=== PATIENT | female | born 2000 | race Caucasian/White ===

== ENCOUNTER 2022-03-31 22:46 | Emergency (ER) | payer OTHER, SELFPAY ==
[2022-03-31 22:51] VITALS: BP 143/86; PULSE 120; RESP 18; TEMP 36.8; O2SAT 99; BMI 36.1
--- NOTE | 2022-03-31 23:11 | CT_ITS ---
EXAM: CT HEAD WITHOUT INTRAVENOUS CONTRAST CLINICAL INDICATION: seizure TECHNIQUE: Multiple axial images were obtained of the head without intravenous contrast. This CT exam was performed using one or more of the following dose reduction techniques: automated exposure control, adjustment of the mA and/or kV according to patient size, and/or use of iterative reconstruction technique. This report was created using [employer] report generation technology. RADIATION DOSE: CTDIvol = 44.99 mGy, DLP = 796.11 mGy-cm. COMPARISON: None. FINDINGS: BRAIN AND EXTRA-AXIAL SPACES: Unremarkable. No intra- or extra-axial hemorrhage. No evidence of acute infarct. No intracranial mass or mass effect. There is preservation of the ghosh/white matter interface. Posterior fossa structures are unremarkable. Ventricles are appropriate for age. No hydrocephalus. Basal cisterns are patent. BONES/JOINTS: Unremarkable. No discrete lytic or blastic abnormalities. SINUSES: Bilateral maxillary and ethmoid sinus mucosal disease. MASTOID AIR CELLS: Unremarkable. Clear. ORBITS: Visualized globes, extraocular muscles, optic nerves and retrobulbar fat appear unremarkable. CT/Brain/Head without Contrast IMPRESSION: 1. No acute intracranial abnormality. 2. Bilateral maxillary and ethmoid sinus mucosal disease. Electronically Signed: Oscar Sparrow MD at 0:00 EDT ,
[2022-03-31 23:44] LABS: Mucous, Urine 0 SEEN /hpf (<or=2+); Red Blood Cells-Urine 0 SEEN /hpf (0-5); Squamous Epithelial Cells - UA 0 SEEN /hpf (5-10); White Blood Cells 0 SEEN /hpf (0-5)
[2022-03-31 23:45] LABS: Color, Urine Yellow (Yellow); Glucose, Dipstick Normal (Normal); Ketone-Dipstick Negative (Negative); Leukocyte Esterase-Dipstick Negative /ul (Negative); Nitrite-Dipstick Negative (Negative); Occult Blood-Urine 25 /ul (Negative); Protein-Dipstick Negative (Negative); Urine Bilirubin Dipstick Negative (Negative); Urine Clarity Clear (Clear); Urine Urobilinogen Normal (Normal)
[2022-03-31 23:47] LABS: Absolute Lymphocyte Count 7.63 X10^3/uL (0.83-4.51); Absolute Neutrophil Count 1.4 X10^3/uL (2.0-7.7); Anion Gap 9 (5-15); BUN 12 mg/dL (7-18); BUN/Creat Ratio 15.8 RATIO (10-20); Basophil# 0.12 X10^3/uL; Basophil% 1.2 % (0-1); Calcium,Total 8.9 mg/dL (8.5-10.1); Chloride 104 mmol/L (98-107); Creatinine, Serum 0.76 mg/dL (0.55-1.02); EST Glomerular Filtration Rate 102 mL/min (>60); Eosinophil# 0.11 X10^3/uL; Eosinophils% 1.1 % (0-5); Est Glom Filt Rate - Afr Amer 123 mL/min (>60); Estimated Creatinine Clearance 118.12 ml/min; Glucose 91 mg/dL (74-106); Hemoglobin 14.7 g/dL (12.0-15.0); Lymphocyte # 7.63 X10^3/ul (0.83-4.51); Lymphocyte % 77.9 % (19-41); Mean Corp Hgb Conc 34.2 g/dL (32-36); Mean Corpuscular Volume 90.7 fL (81-99); Mean Platelet Vol. 9.7 fl (6.2-12.0); Monocyte# 0.49 X10^3/uL; NRBC Flagged by Analyzer 0 % (0-5); Neutrophil % 14.4 % (47-70); POSITIVE DIFFERENTIAL YES; POSITIVE MORPHOLOGY YES; Platelet Count 251 K/mm3 (150-450); RBC Distribution Width CV 11.9 % (11.6-14.6); RBC Distribution Width SD 40.4 fl (35.1-43.9); Red Blood Count 4.74 M/mm3 (4.2-5.4); Sodium Level 138 mmol/L (136-145); White Blood Count 9.8 K/mm3 (4.4-11.0)
[2022-03-31 23:51] LABS: Internal QC Validated? YES +Cl - CLEAR BKGD; Pregnancy, Serum, hCG Quali. NEGATIVE Negative
[2022-03-31 23:54] LABS: Differential Indicated SCAN CRITERIA MET
[2022-04-01 00:05] LABS: Bacteria RARE /hpf (None Seen)
[2022-04-01 00:27] LABS: Lactic Acid 1.1 mmol/L (0.4-1.9)
[2022-04-01 00:30] LABS: Amphetamine Urine VISTA NEGATIVE (<1000 ng/mL); Barbiturate Urine VISTA NEGATIVE (< 200 ng/mL); Benzodiazepine Urine VISTA NEGATIVE (< 200 ng/mL); Cocaine Urine VISTA NEGATIVE (< 300 ng/mL); Ecstacy Urine VISTA NEGATIVE (< 500 ng/mL); Methadone Urine VISTA NEGATIVE (< 300 ng/mL); PCP Urine VISTA NEGATIVE (< 25 ng/mL); THC Urine VISTA NEGATIVE (< 50 ng/mL); Vista UDS pH Range 6
[2022-04-01 00:32] LABS: Differential Comment SCANNED; Reactive Lymphocyte 1+
--- NOTE | 2022-04-01 00:51 | EDS_ITS ---
HPI History of Present Illness Chief Complaint: Seizure Narrative Narrative: Patient is a 22-year-old female with past medical history of anxiety. She states that she recently moved in with her boyfriend. She reports that this evening she remembers that they were having sexual intercourse and then she was is awaking in the ambulance. Boyfriend states that he noticed that she began to stare off. And then started to foam at the mouth and then she had contractures and twitching like activity. He states this lasted for about 2 to 3-minute and then resolved but following this she appeared awake but would not respond. Secondary to this EMS was contacted. Patient states she is been taking her medication as directed she denies any new medication or illicit drug use. She denies any recent head trauma or previous history of seizure activity. PFSH PFSH Allergy/AdvReac Type Severity Reaction Status Date / Time No Known Allergies Allergy Verified 03/31/22 22:49 Social History Smoking Status: Never smoker ROS ROS ED Constitutional Constitutional ED: Denies chills or fever(s) Eyes Eyes: Denies change in vision ENT ENT ED: Denies sore throat Cardiovascular Cardiovascular: Denies chest pain Respiratory/Chest Respiratory/Chest: Denies cough or dyspnea Gastrointestinal Gastrointestinal: Denies abdominal pain, diarrhea, nausea or vomiting Genitourinary Genitourinary ED: Denies dysuria Musculoskeletal Musculoskeletal: Denies myalgias Integumentary Denies rash Neurologic Neurologic: Denies headache(s) Psychiatric Psychiatric: Reports anxiety Hematologic/Lymphatic Hematologic/Lymphatic: Denies easy bleeding or easy bruising EXAM Physical Exam Const Vital Signs: 03/31/22 22:51 04/01/22 00:55 Temperature 98.2 F Temperature Source Temporal Pulse Rate 120 H 76 Respiratory Rate 18 17 Blood Pressure 143/86 H 132/74 H Blood Pressure Mean 105 93 Pulse Ox 99 99 Oxygen Delivery Method Room Air Room Air Positive well nourished and well developed General Appearance ED: well developed HEENT Reports moist mucous membranes HEENT Narrative: There is mild right-sided tongue biting noted consistent with possible seizure Eyes PERRL and EOMs intact bilaterally Neck supple Chest Wall palpation of chest normal Resp normal respiratory effort and clear to auscultation bilaterally Cardio regular rate and regular rhythm GI normal to inspection, nondistended, normoactive bowel sounds, non-tender, non- distended and no masses Auscultation: normoactive bowel sounds Palpation: soft Extremity normal to inspection Neuro oriented x3, CN's II-XII intact bilaterally and no sensory deficits noted Neuro Narrative: Cranial nerves II through XII are grossly intact. No focal neurologic deficit noted. No pronator drift no dysmetria no truncal ataxia. NIH stroke scale score of 0 Sensorium / Orientation: alert Psych Psych Narrative: Patient has a flat affect Skin no rashes or lesions noted MDM MDM MDM Narrative Medical decision making narrative: Patient presented to the ER awake and alert with normal neurologic exam. She had no history of seizure disorder and denied any illicit substances that could have precipitated the seizure activity. Secondary to this I did elect to perform basic laboratory studies as well as head CT. Labs revealed no clinically significant findings and patient is not . Head CT revealed no acute changes either. The patient had no further seizure activity while in the ER and remained at her baseline mental. Therefore this time with a one-time seizure event with return to baseline mental status and no further seizure activity as well as negative work-up she is otherwise safe for discharge and can follow-up on an outpatient basis Lab Data Attestation: I reviewed the patient's lab results. Labs: Laboratory Results - last 24 hr 03/31/22 03/31/22 03/31/22 22:58 22:58 22:58 WBC 9.8 RBC 4.74 Hgb 14.7 Hct 43.0 MCV 90.7 MCH 31.0 MCHC 34.2 RDW Std Deviation 40.4 RDW Coeff of Maddy 11.9 Plt Count 251 MPV 9.7 Immature Gran % (Auto) 0.400 Neut % (Auto) 14.4 L Lymph % (Auto) 77.9 H [place] % (Auto) 5.0 Eos % (Auto) 1.1 Baso % (Auto) 1.2 H Absolute Neuts (auto) 1.4 L Absolute Lymphs (auto) 7.63 H Nucleated RBC % 0 Differential Comment SCANNED Reactive Lymphocytes 1+ Sodium 138 Potassium 4.0 Chloride 104 Carbon Dioxide 25.0 Anion Gap 9 BUN 12 Creatinine 0.76 Estim Creat Clear Calc 118.12 Est GFR (MDRD) Af Amer 123 Est GFR (MDRD) Non-Af 102 BUN/Creatinine Ratio 15.8 Glucose 91 Lactic Acid Calcium 8.9 Magnesium 2.0 Serum , Qual NEGATIVE Urine Color Urine Clarity Urine pH Ur Specific [place] Urine Protein Urine Glucose (UA) Urine Ketones Urine Occult Blood Urine Nitrite Urine Bilirubin Urine Urobilinogen Ur Leukocyte Esterase Urine RBC Urine WBC Ur Squamous Epith Cells Urine Bacteria Urine Mucus Urine Opiates Screen Urine Methadone Screen Ur Barbiturates Screen Ur Phencyclidine Scrn Ur Amphetamines Screen MDMA (Ecstasy) Screen U Benzodiazepines Scrn Urine Cocaine Screen U Cannabinoids Screen Ur Drug Screen Comment 03/31/22 03/31/22 03/31/22 23:35 23:35 23:55 WBC RBC Hgb Hct MCV MCH MCHC RDW Std Deviation RDW Coeff of Maddy Plt Count MPV Immature Gran % (Auto) Neut % (Auto) Lymph % (Auto) [place] % (Auto) Eos % (Auto) Baso % (Auto) Absolute Neuts (auto) Absolute Lymphs (auto) Nucleated RBC % Differential Comment Reactive Lymphocytes Sodium Potassium Chloride Carbon Dioxide Anion Gap BUN Creatinine Estim Creat Clear Calc Est GFR (MDRD) Af Amer Est GFR (MDRD) Non-Af BUN/Creatinine Ratio Glucose Lactic Acid 1.1 Calcium Magnesium Serum , Qual Urine Color Yellow Urine Clarity Clear Urine pH 7.0 Ur Specific [place] 1.010 Urine Protein Negative Urine Glucose (UA) Normal Urine Ketones Negative Urine Occult Blood 25 H Urine Nitrite Negative Urine Bilirubin Negative Urine Urobilinogen Normal Ur Leukocyte Esterase Negative Urine RBC 0 SEEN Urine WBC 0 SEEN Ur Squamous Epith Cells 0 SEEN Urine Bacteria RARE Urine Mucus 0 SEEN Urine Opiates Screen NEGATIVE Urine Methadone Screen NEGATIVE Ur Barbiturates Screen NEGATIVE Ur Phencyclidine Scrn NEGATIVE Ur Amphetamines Screen NEGATIVE MDMA (Ecstasy) Screen NEGATIVE U Benzodiazepines Scrn NEGATIVE Urine Cocaine Screen NEGATIVE U Cannabinoids Screen NEGATIVE Ur Drug Screen Comment Radiography Diagnostic Testing: Clinical Impression(s) from Imaging Studies Brain CT 03/31/22 23:11 IMPRESSION: 1. No acute intracranial abnormality. 2. Bilateral maxillary and ethmoid sinus mucosal disease. Electronically Signed: Oscar Sparrow MD at 0:00 EDT , Discharge Plan Triage Chief Complaint: Seizure ED Provider: Usman Tracey Dx/Rx/DC Orders Clinical Impression: Seizure-like activity, Anxiety Instructions: ED Seizure New Onset Unknown ... Primary Care Provider: Ashok Vee NP Referrals: Joe Nuñez MD [Non-Staff -Ordering Privileges] - Ashok Vee NP, [employer] OPERATOR RECEPTIONIST-C [Primary Care Provider] - Activity Restrictions/Additional Instructions: Please do not drive or operate heavy machinery until you are reevaluated by neurology because of the seizure-like activity that occurred this evening. Please return to the ER should you have any further concerns Disposition Disposition: Home, Self Care Discharge Date/Time: 04/01/22 01:16
[2022-04-01 00:55] VITALS: BP 132/74; PULSE 76; RESP 17; O2SAT 99
== END 2022-04-01 01:16 | disposition home or self-care (01) ==
PROVIDERS: Emergency Provider Emergency Medicine; PCP Nurse Practitioner Family; Visit Provider Emergency Medicine
DX: R56.9 Unspecified convulsions (principal); F41.9 Anxiety disorder, unspecified
CPT/HCPCS: 70450; 80048; 80307; 81001; 83605; 83735; 84703; 85025; 99285; A4216

== ENCOUNTER → 2022-08-21 | Outpatient (CLI) | payer OTHER, SELFPAY ==
--- NOTE | 2022-08-21 10:06 | TELEMED_ITS ---
[facility] has confirmed receipt of a request for visit. This document confirms receipt of the order initiating the consult. To find the results of the consultation, please view the patient's reports for the scanned Tele[facility] Consult.
== END | disposition home or self-care (01) ==
PROVIDERS: PCP Nurse Practitioner Family; Visit Provider Psychiatry & Neurology Neurology
DX: G40.909 Epilepsy, unspecified, not intractable, without status epilepticus (principal); G43.009 Migraine without aura, not intractable, without status migrainosus
CPT/HCPCS: 95819

== ENCOUNTER → 2022-08-27 | Outpatient (CLI) | payer OTHER, SELFPAY ==
--- NOTE | 2022-08-27 17:40 | MRI_ITS ---
EXAM: MR HEAD WITHOUT AND WITH INTRAVENOUS CONTRAST CLINICAL INDICATION: Generalized seizure of focal onset in March 2022, L frontal headaches above and around L eye TECHNIQUE: Multiplanar and multisequence MR images of the brain were obtained without and with intravenous contrast. This report was created using [employer] report [employer] technology. CONTRAST: 20 mL of IV Clariscan. COMPARISON: CT head without contrast 03/31/2022. FINDINGS: BRAIN AND EXTRA-AXIAL SPACES: Following IV contrast administration, there is a small partially included mass in the left porus acusticus. This measures 0.8 x 0.7 cm in the thin coronal sections and is only partially included in the routine postcontrast thick T1 sagittal and thick T1 coronal sections of the brain. I am unable to confirm contrast enhancement. This is partially visualized on the CT head scan as an area of extra-axial bony exostosis or ossified meningioma. No abnormal enhancing lesions intra-axially and extra-axially. There is contrast enhancement of the mucosal thickening in the left maxillary sinus, left ethmoid sinus and left frontal sinus. No intra- or extra-axial hemorrhage. No evidence of acute infarct. There is preservation of the ghosh/white matter interface. Posterior fossa structures are unremarkable. Ventricles are appropriate for age. No hydrocephalus. Basal cisterns are patent. No focal signal abnormalities throughout the brain parenchyma in all pulse sequences. No suspicious abnormality of the limbic lobes. SELLA: Unremarkable. Normal sella turcica, pituitary gland, infundibular stalk, optic chiasm and hypothalamus. AUDITORY SYSTEM: Unremarkable. The internal auditory canals are patent. BONES/JOINTS: Unremarkable. No discrete lytic or blastic abnormalities. SINUSES: Pronounced mucosal thickening in the left maxillary sinus, left ethmoid sinus and left frontal sinus. Mild mucosal thickening with retention cyst and small air-fluid level in the right maxillary sinus. MASTOID AIR CELLS: Unremarkable as visualized. Clear. ORBITS: Unremarkable as visualized. Both globes, extraocular muscles, optic nerves and retrobulbar fat appear unremarkable. VASCULATURE: Unremarkable as visualized. Normal flow voids in the major intracranial circulation. MRI/Brain W/WO Contrast IMPRESSION: 1. 0.8 x 0.7 cm bony mass in the left porus acusticus is uncertain for ossified meningioma or focal bony exostosis. This is partially included and visualized on the CT head scan of 03/31/2022. This is of doubtful clinical significance. If desired, CT cuts of the IACs and temporal bones and dedicated MRI of the IACs with and without contrast will help clarify. 2. Pronounced sinusitis in the left maxillary sinus, left ethmoid sinus and left frontal sinus. 3. No suspicious abnormality of the limbic lobes, neuronal migrational disorders or brain parenchymal abnormality. Seizures remain unexplained. Electronically Signed: Kirk Gomez MD at 10:57 EST ,
== END | disposition home or self-care (01) ==
PROVIDERS: PCP Nurse Practitioner Family; Referring Provider Psychiatry & Neurology Neurology; Visit Provider Psychiatry & Neurology Neurology
DX: G43.009 Migraine without aura, not intractable, without status migrainosus (principal); G40.909 Epilepsy, unspecified, not intractable, without status epilepticus
CPT/HCPCS: 70553; A9575

== ENCOUNTER → 2023-02-20 | Outpatient (CLI) | payer OTHER, SELFPAY ==
--- NOTE | 2023-02-20 08:47 | CT_ITS ---
STUDY: CT BRAIN WITHOUT CONTRAST REASON FOR EXAM: Female, 22 years old. Known meningioma RADIATION DOSAGE (If Supplied By Facility): CTDIvol = ( 44.99 ) mGy, DLP = ( 829.85 ) mGycm TECHNIQUE: Transaxial CT imaging of the brain was performed without administration of intravenous contrast material. Individualized dose optimization techniques were used for this CT. COMPARISON: MR from 08/27/2022, CT from 03/31/2022 FINDINGS: Normal soft tissue structures. Normal calvarium. Again identified is a calcified meningioma in the left porous acousticus. No interval change since previous CT or MRI. Normal size ventricles and extra-axial spaces for the patient''s age. Normal white matter tracts of the cerebral hemispheres. Normal basal ganglia and thalami. Normal brainstem. Normal cerebellum. There is no intracranial hemorrhage. There are no findings of an acute ischemic infarction. The left maxillary sinus is opacified with occlusion of the left ostiomeatal complex and diffuse ethmoid sinusitis also noted. CT/Brain/Head without Contrast IMPRESSION: No acute hemorrhage midline shift or mass effect Opacified left maxillary sinus with occlusion of the left ostiomeatal complex. Diffuse ethmoid sinusitis also noted Stable 8 mm calcification in the left porous acousticus, likely a calcified meningioma Electronically Signed: Laurent Kuo MD at 10:32 EDT ,
== END | disposition home or self-care (01) ==
PROVIDERS: PCP Nurse Practitioner Family; Referring Provider Psychiatry & Neurology Neurology; Visit Provider Psychiatry & Neurology Neurology
DX: M89.9 Disorder of bone, unspecified (principal)
CPT/HCPCS: 70450

== ENCOUNTER 2023-04-19 10:07 | Emergency (ER) | payer OTHER, SELFPAY ==
[2023-04-19 10:08] VITALS: BP 163/94; PULSE 81; RESP 16; TEMP 36.1; O2SAT 100; BMI 37.7
--- NOTE | 2023-04-19 11:28 | CT_ITS ---
EXAM: CT ABDOMEN AND PELVIS WITH INTRAVENOUS CONTRAST CLINICAL INDICATION: abdominal pain TECHNIQUE: Helically acquired images were obtained of the abdomen and pelvis with intravenous contrast. This CT exam was performed using one or more of the following dose reduction techniques: automated exposure control, adjustment of the mA and/or kV according to patient size, and/or use of iterative reconstruction technique. CONTRAST: IV 100mL Isovue-300 COMPARISON: No relevant prior studies available. FINDINGS: LOWER THORAX: Normal. Lung bases are clear. No cardiomegaly. No pericardial effusion. ABDOMEN: LIVER: Normal. Homogeneous. No focal mass. PANCREAS: Normal. No focal cystic or solid mass. SPLEEN: Normal. Normal size without focal cystic or solid mass. ADRENALS: Normal. No nodules. KIDNEYS AND URETERS: Normal. Normal renal size and position. No hydronephrosis. STOMACH AND BOWEL: Normal. No bowel distention. No focal inflammatory change. PELVIS: APPENDIX: Appendix is visualized and normal in appearance. BLADDER: Normal. REPRODUCTIVE: Unremarkable as visualized. No mass. ABDOMEN and PELVIS: INTRAPERITONEAL SPACE: Small amount of free fluid within the pelvis noted which may represent hemoperitoneum. 2.6 cm left ovarian cyst. No free air. BONES/JOINTS: No suspicious lytic or blastic abnormality. SOFT TISSUES: Normal. No discrete abdominal or pelvic wall hernia. VASCULATURE: Normal. Abdominal aorta is non-dilated. LYMPH NODES: Normal. No enlarged lymph nodes. CT/Abdomen/Pelvis W IV Cont ONLY IMPRESSION: Free pelvic fluid which may represent small hemoperitoneum related to ruptured ovarian cyst. Correlate with hCG titer. Electronically Signed: Seamus Hanna MD at 12:36 EDT ,
--- NOTE | 2023-04-19 11:29 | EX.ED.DYSGE1 ---
HPI <JOSELINE Jurado - Last Filed: 04/19/23 12:57> History of Present Illness Chief Complaint: Abd Pain Narrative Narrative: Patient is a 23-year-old female with history of anxiety, 1 episode seizure who presents to the emergency department for 4 days of lower abdominal pain. Patient states the pain is now more localized on her right lower quadrant, and also has pain to the right upper quadrant. She denies any significant nausea or vomiting. She denies any history of , denies any history of abdominal surgeries. She is here with her mother. Patient denies any sick contacts. PFSH <JOSELINE Jurado - Last Filed: 04/19/23 12:57> [facility] Medical History (Updated 04/19/23 @ 12:56 by JOSELINE Jurado) Single epileptic seizure UTI (urinary tract infection) Home Medications citalopram 10 mg tablet 10 mg PO DAILY 08/11/22 [History Last Taken Unknown] ibuprofen 600 mg tablet 600 mg PO Q6H PRN PRN pain #20 TABLETS 04/19/23 [Rx Last Taken Unknown] Allergy/AdvReac Type Severity Reaction Status Date / Time latex AdvReac Mild Other Verified 04/19/23 10:08 Family History Grandmother Breast cancer Lung cancer Heart disease Hypertension High cholesterol CVA (cerebral vascular accident) Sister Depression Grandfather Heart disease Hypertension High cholesterol CVA (cerebral vascular accident) Other Cancer Diabetes Mental disorder Seizures Surgical History History of tonsillectomy Social History Smoking Status: Never smoker second hand exposure: No alcohol intake: never substance use type: does not use what type of physical activity do you participate in: none seatbelt use: always ROS <JOSELINE Jurado - Last Filed: 04/19/23 12:57> ROS ED ROS Narrative Constitutional: Negative for fever, chills, weight loss, weakness Eyes: Negative for vision loss, vision change, double vision ENT: Negative for any sore throat, ear pain, congestion Cardiovascular: Negative for any chest pain, tightness, palpitations Respiratory: Negative for any cough, sputum production, hemoptysis, dyspnea, dyspnea on exertion, orthopnea Gastrointestinal: Negative for any nausea, vomiting, diarrhea, constipation, blood in stool, blood in vomit. Positive for abdominal pain : Negative for any urinary frequency, dysuria, retention, blood in urine Muscle skeletal: Negative for any muscle joint pain, stiffness, myalgias, arthralgias, neck pain, back pain Neurological: Negative for any headache, syncope, numbness or tingling, dizziness Skin: Negative for any rashes, lumps, itching, abrasions, lacerations Psychiatric: Negative for any depression, anxiety, stress, suicidal ideation, homicidal ideation Hematologic: Negative for any easy bruising, excessive bruising, easy bleeding Allergies: Negative for any eczema, hives, rash EXAM <JOSELINE Jurado - Last Filed: 04/19/23 12:57> Physical Exam Narrative Exam Narrative: Vital signs reviewed. HEET: Head normocephalic atraumatic, TMs clear bilaterally. Posterior pharynx is clear, moist mucous membranes. Nares clear bilaterally. Neck: Supple with no lymphadenopathy or tenderness. No signs of meningismus, negative jolt sign. Cardiac: Regular rate and rhythm no murmurs gallops or rubs, equal peripheral pulses bilaterally. Respiratory: Lungs clear to auscultation bilaterally. No chest tenderness. Abdomen: Soft, nondistended. No abdominal bruit or pulsatile masses. No hepatosplenomegaly. Patient did have some pain to the upper abdominal area, negative Mukherjee sign. Patient did have pain in McBurney's point to the right lower quadrant. Extremities: No peripheral edema, no signs of gross trauma or deformity. Active full range of motion of all extremities. Neuro: Cranial nerves II through XII intact, no focal neurological deficits. Skin: Clean dry and intact with no rash, purpura, petechiae, vesicles or pustules. Backs/flank: No CVA tenderness, no midline spinal tenderness, no deformity. Psych: Normal mood and affect. No SI, HI or acute psychosis. Const Vital Signs: 04/19/23 10:08 04/19/23 13:12 Temperature 96.9 F L Temperature Source Temporal Pulse Rate 81 62 Respiratory Rate 16 15 Blood Pressure 163/94 H 129/74 H Blood Pressure Mean 117 92 Pulse Ox 100 98 Oxygen Delivery Method Room Air Positive well nourished and well developed General Appearance ED: well developed <Dr. Wilson Thomas MD - Last Filed: 04/19/23 13:40> Physical Exam Const Vital Signs: 04/19/23 10:08 04/19/23 13:12 Temperature 96.9 F L Temperature Source Temporal Pulse Rate 81 62 Respiratory Rate 16 15 Blood Pressure 163/94 H 129/74 H Blood Pressure Mean 117 92 Pulse Ox 100 98 Oxygen Delivery Method Room Air MDM <JOSELINE Jurado - Last Filed: 04/19/23 12:57> MDM Lab Data Labs: Laboratory Results - last 24 hr 04/19/23 11:20 WBC 8.4 RBC 4.56 Hgb 13.8 Hct 41.7 MCV 91.4 MCH 30.3 MCHC 33.1 RDW Std Deviation 41.7 RDW Coeff of Maddy 12.5 Plt Count 359 MPV 9.4 Immature Gran % (Auto) 0.200 Neut % (Auto) 55.5 Lymph % (Auto) 33.9 [place] % (Auto) 6.1 Eos % (Auto) 3.7 Baso % (Auto) 0.6 Absolute Neuts (auto) 4.6 Absolute Lymphs (auto) 2.83 Nucleated RBC % 0 Sodium 138 Potassium 3.5 Chloride 107 Carbon Dioxide 27.0 Anion Gap 4 L BUN 10 Creatinine 0.60 Estim Creat Clear Calc 148.36 Est GFR (MDRD) Af Amer 162 Est GFR (MDRD) Non-Af 134 BUN/Creatinine Ratio 16.8 Glucose 90 Calcium 8.6 Total Bilirubin 0.40 AST 11 L ALT 23 Alkaline Phosphatase 104 Total Protein 7.7 Albumin 3.6 Globulin 4.1 Albumin/Globulin Ratio 0.9 Lipase 22 Urine Color Straw Urine Clarity Clear Urine pH 7.0 Ur Specific [place] 1.010 Urine Protein Negative Urine Glucose (UA) Normal Urine Ketones Negative Urine Occult Blood 10 H Urine Nitrite Negative Urine Bilirubin Negative Urine Urobilinogen Normal Ur Leukocyte Esterase Negative Urine RBC 0 SEEN Urine WBC 0 SEEN Ur Squamous Epith Cells 0-5 SEEN Urine Bacteria 0 SEEN Urine Mucus 0 SEEN Urine Test Negative Radiography Diagnostic Testing: Clinical Impression(s) from Imaging Studies Abdomen/Pelvis CT 04/19/23 11:28 IMPRESSION: Free pelvic fluid which may represent small hemoperitoneum related to ruptured ovarian cyst. Correlate with hCG titer. Electronically Signed: Seamus Hanna MD at 12:36 EDT , Treatment and Re-Evaluation :: Patient appears generally well, patient appears nontoxic, vital signs are stable. Patient presents to the emergency department with lower abdominal pain. Secondary the patient's pain to the lower abdomen, patient will receive a CT scan of the abdomen pelvis. Differential diagnosis includes ovarian cyst, acute appendicitis, gastroenteritis, muscle skeletal pain. Patient was using basic laboratory values looking for any electrolyte abnormality, lipase, all radiologic examinations were read, reviewed by the emergency department attending. From these reads, a plan of care will be put in place. Patient's lab values showed normal CBC, patient's chemistries were unremarkable, lipase was negative. Urinalysis was negative for any infection, patient's urine hCG was negative. Patient was given IV Toradol here for pain. CT scan of the abdomen pelvis showed free pelvic fluid which may represent small hemoperitoneum related to a ruptured ovarian cyst. Patient does have a 2.3 cm ovarian cyst on the left ovary. This does correlate with the patient's symptoms. Patient does look nontoxic. Patient be treated with anti-inflammatories, she will also follow-up with her PATIENT SAFETY TECH. She was given strict return precaution. All questions were answered, patient stable for discharge <Dr. Wilson Thomas MD - Last Filed: 04/19/23 13:40> [facility] Narrative Medical decision making narrative: I have personally performed a face to face assessment of the patient and have reviewed the TRISTAN Note. I performed a substantive portion of the visit including all aspects of the following. My son findings include: History: Patient's been having mostly right-sided pain mostly lower. Last menstrual cycle was Wednesday. No fever. Mild nausea no vomiting. Exam: Mild tenderness along the right side. More right lower than right upper though. No rebound or guarding. Medical Decision Making: Blood work is done. We did do CT scan with the tenderness. Patient CBC he is overall well. Patient's elect lites well. Patient's urine is overall normal. Patient's lipase is normal. Patient's urine is negative. I had been interpretation the patient's CT of the abdomen shows little fluid down the pelvis no other acute process. Final reading: IMPRESSION: Free pelvic fluid which may represent small hemoperitoneum related to ruptured ovarian cyst. Correlate with hCG titer. Lab Data Attestation: I reviewed the patient's lab results. Labs: Laboratory Results - last 24 hr 04/19/23 11:20 WBC 8.4 RBC 4.56 Hgb 13.8 Hct 41.7 MCV 91.4 MCH 30.3 MCHC 33.1 RDW Std Deviation 41.7 RDW Coeff of Maddy 12.5 Plt Count 359 MPV 9.4 Immature Gran % (Auto) 0.200 Neut % (Auto) 55.5 Lymph % (Auto) 33.9 [place] % (Auto) 6.1 Eos % (Auto) 3.7 Baso % (Auto) 0.6 Absolute Neuts (auto) 4.6 Absolute Lymphs (auto) 2.83 Nucleated RBC % 0 Sodium 138 Potassium 3.5 Chloride 107 Carbon Dioxide 27.0 Anion Gap 4 L BUN 10 Creatinine 0.60 Estim Creat Clear Calc 148.36 Est GFR (MDRD) Af Amer 162 Est GFR (MDRD) Non-Af 134 BUN/Creatinine Ratio 16.8 Glucose 90 Calcium 8.6 Total Bilirubin 0.40 AST 11 L ALT 23 Alkaline Phosphatase 104 Total Protein 7.7 Albumin 3.6 Globulin 4.1 Albumin/Globulin Ratio 0.9 Lipase 22 Urine Color Straw Urine Clarity Clear Urine pH 7.0 Ur Specific [place] 1.010 Urine Protein Negative Urine Glucose (UA) Normal Urine Ketones Negative Urine Occult Blood 10 H Urine Nitrite Negative Urine Bilirubin Negative Urine Urobilinogen Normal Ur Leukocyte Esterase Negative Urine RBC 0 SEEN Urine WBC 0 SEEN Ur Squamous Epith Cells 0-5 SEEN Urine Bacteria 0 SEEN Urine Mucus 0 SEEN Urine Test Negative Radiography Diagnostic Testing: Clinical Impression(s) from Imaging Studies Abdomen/Pelvis CT 04/19/23 11:28 IMPRESSION: Free pelvic fluid which may represent small hemoperitoneum related to ruptured ovarian cyst. Correlate with hCG titer. Electronically Signed: Seamus Hanna MD at 12:36 EDT , Discharge Plan Triage Chief Complaint: Abd Pain ED Midlevel Provider: Jake Garcia ED Provider: Wilson Thomas Dx/Rx/DC Orders Clinical Impression: Ovarian cyst, Abdominal pain Instructions: Ovarian Cysts, ED Ovarian Cyst Prescriptions: New ibuprofen 600 mg tablet 600 mg PO Q6H PRN PRN (Reason: pain) Qty: 20 0RF No Action citalopram 10 mg tablet 10 mg PO DAILY Primary Care Provider: Ashok Vee [facility] Referrals: Ashok Vee [facility], [facility] [Primary Care Provider] - Activity Restrictions/Additional Instructions: Please use anti-inflammatories. He may also use a heating pad. Return for worsening symptoms Disposition Disposition: Home, Self Care Discharge Date/Time: 04/19/23 13:17
[2023-04-19 11:35] LABS: Bacteria 0 SEEN /hpf (None Seen); Mucous, Urine 0 SEEN /hpf (<or=2+); Red Blood Cells-Urine 0 SEEN /hpf (0-5); White Blood Cells 0 SEEN /hpf (0-5)
[2023-04-19 11:45] LABS: Absolute Lymphocyte Count 2.83 X10^3/uL (0.83-4.51); Absolute Neutrophil Count 4.6 X10^3/uL (2.0-7.7); Basophil# 0.05 X10^3/uL; Basophil% 0.6 % (0-1); Eosinophil# 0.31 X10^3/uL; Eosinophils% 3.7 % (0-5); Hematocrit 41.7 % (37-47); Hemoglobin 13.8 g/dL (12.0-15.0); Lymphocyte # 2.83 X10^3/ul (0.83-4.51); Lymphocyte % 33.9 % (19-41); Mean Corp Hgb Conc 33.1 g/dL (32-36); Mean Corpuscular Hgb 30.3 pg (27.0-32.0); Mean Corpuscular Volume 91.4 fL (81-99); Mean Platelet Vol. 9.4 fl (6.2-12.0); Monocyte# 0.51 X10^3/uL; Monocyte% 6.1 % (0-10); NRBC Flagged by Analyzer 0 % (0-5); Neutrophil # 4.63 X10^3/uL (2.7-7.7); Neutrophil % 55.5 % (47-70); Platelet Count 359 K/mm3 (150-450); RBC Distribution Width CV 12.5 % (11.6-14.6); RBC Distribution Width SD 41.7 fl (35.1-43.9); Red Blood Count 4.56 M/mm3 (4.2-5.4); White Blood Count 8.4 K/mm3 (4.4-11.0)
[2023-04-19 11:46] LABS: Color, Urine Straw (Yellow); Glucose, Dipstick Normal (Normal); Ketone-Dipstick Negative (Negative); Leukocyte Esterase-Dipstick Negative /ul (Negative); Nitrite-Dipstick Negative (Negative); Occult Blood-Urine 10 /ul (Negative); Protein-Dipstick Negative (Negative); Urine Bilirubin Dipstick Negative (Negative); Urine Clarity Clear (Clear); Urine Urobilinogen Normal (Normal)
[2023-04-19 11:50] LABS: Squamous Epithelial Cells - UA 0-5 SEEN /hpf (5-10)
[2023-04-19 11:51] LABS: Internal QC Validated? YES +Cl - CLEAR BKGD; Pregnancy, Urine Negative Negative
[2023-04-19 11:54] LABS: ALB/GLOB Ratio 0.9 RATIO (0.9-2.4); AST(SGOT) 11 U/L (15-37); Alanine Aminotransfer ALT/SGPT 23 U/L (13-56); Albumin, Serum 3.6 g/dL (3.2-5.0); Alkaline Phosphatase 104 U/L (45-117); Anion Gap 4 (5-15); BUN 10 mg/dL (7-18); BUN/Creat Ratio 16.8 RATIO (10-20); Calcium,Total 8.6 mg/dL (8.5-10.1); Chloride 107 mmol/L (98-107); EST Glomerular Filtration Rate 134 mL/min (>60); Est Glom Filt Rate - Afr Amer 162 mL/min (>60); Estimated Creatinine Clearance 148.36 ml/min; Globulin 4.1 g/dL (2.2-4.2); Glucose 90 mg/dL (74-106); Lipase 22 U/L (13-75); Potassium 3.5 mmol/L (3.5-5.1); Protein, Total 7.7 g/dL (6.4-8.2); Sodium Level 138 mmol/L (136-145)
[2023-04-19] MEDS: Ketorolac 15 MG/ML Vial IV (12:24)
[2023-04-19] MEDS: 0.9% Normal Saline (1000mL) 1,000 ML 1000 ML IV (12:24)
[2023-04-19 13:12] VITALS: BP 129/74; PULSE 62; RESP 15; O2SAT 98
== END 2023-04-19 13:17 | disposition home or self-care (01) ==
PROVIDERS: Nurse Practitioner; Emergency Provider Emergency Medicine; PCP Nurse Practitioner Family; Visit Provider Emergency Medicine
DX: N83.209 Unspecified ovarian cyst, unspecified side (principal); R10.9 Unspecified abdominal pain; F41.9 Anxiety disorder, unspecified; Z79.899 Other long term (current) drug therapy
CPT/HCPCS: 74177; 80053; 81001; 81025; 83690; 85025; 96361; 96374; 99282; J7030; Q9967; A4216

== ENCOUNTER 2023-11-29 17:45 | Outpatient (CLI) | payer OTHER, SELFPAY ==
[2023-11-29 18:13] VITALS: PULSE 209; O2SAT 82
[2023-11-29 18:14] VITALS: BP 137/78; PULSE 80; PULSE 81; RESP 16; TEMP 36.6; O2SAT 99
[2023-11-29 18:33] VITALS: BMI 40.9
== END 2023-11-29 18:44 | disposition home or self-care (01) ==
LOC: WPOUT 17:50 → WP 17:51
PROVIDERS: PCP Nurse Practitioner Family; Referring Provider Obstetrics & Gynecology; Visit Provider Obstetrics & Gynecology
DX: Z00.00 Encounter for general adult medical examination without abnormal findings (principal)

== ENCOUNTER → 2024-06-15 | Outpatient (CLI) | payer OTHER, SELFPAY ==
--- NOTE | 2024-06-15 10:55 | MRI_ITS ---
STUDY: MRI BRAIN WITH AND WITHOUT CONTRAST REASON FOR EXAM: Female, 24 years old. epilepsy TECHNIQUE: Standardized multiplanar fat and water weighted pulse sequences were obtained. IV 24ML CLARISCAN was administered for the contrast portion of the examination. COMPARISON: 08/27/2022 FINDINGS: Normal size of the ventricles and extra-axial spaces for the patient''s age. Normal white matter tracts of the supratentorial brain. There is no evidence for recent intracranial ischemia or other cause of cytotoxic edema on diffusion weighted imaging (DWI). Normal T2* images of the brain without demonstrated susceptibility artifact. There is no demonstrated hemosiderin stain. Thin section coronal T2-weighted images through the temporal lobes demonstrate no evidence of hippocampal atrophy or hyperintensity to suggest mesial temporal sclerosis. Normal bilateral basal ganglia. Normal thalami. There is no extra-axial fluid accumulation. Normal flow voids within the major intracranial circulation suggesting patency by spin echo criteria. Normal venous enhancement. There is no enhancing intra-axial or extra-axial abnormality. Normal sella turcica, pituitary gland, infundibular stalk, optic chiasm and hypothalamus. Normal tectal plate and pineal gland. Normal midbrain, anabela and medulla. Normal cerebellum. Normal basal cisterns. Normal bilateral temporal bones. Normal bilateral internal auditory canals. No demonstrated orbital abnormality, within the constraints of a routine brain study. Mucosal thickening and opacification left frontal sinus, left ethmoid air cells, left maxillary sinus. Normal calvarium and skull base. Normal visualized soft tissue structures. Normal visualized upper cervical spine. MRI/Brain W/WO Contrast IMPRESSION: Normal unenhanced and enhanced MRI of the brain. Chronic left-sided sinusitis. Electronically Signed: Mauricio Lopez MD at 17:47 EST ,
[2024-06-15 11:25] LABS: CREATININE FINGERSTICK < 1.0 mg/dL (0.55-1.02); EGFR FINGERSTICK > 60.0000 mL/min (>60)
== END | disposition home or self-care (01) ==
PROVIDERS: Referring Provider Psychiatry & Neurology Neurology; Visit Provider Psychiatry & Neurology Neurology
DX: G40.909 Epilepsy, unspecified, not intractable, without status epilepticus (principal)
CPT/HCPCS: 70553; A9575

== ENCOUNTER → 2024-06-20 | Outpatient (CLI) | payer OTHER, SELFPAY ==
[2024-06-20 09:57] LABS: Hematocrit 34.9 % (37-47); Mean Corp Hgb Conc 31.5 g/dL (32-36); Mean Corpuscular Hgb 28.5 pg (27.0-32.0); Mean Corpuscular Volume 90.4 fL (81-99); Mean Platelet Vol. 9.1 fl (6.2-12.0); Platelet Count 378 K/mm3 (150-450); RBC Distribution Width CV 13.5 % (11.6-14.6); Red Blood Count 3.86 M/mm3 (4.2-5.4); White Blood Count 7.3 K/mm3 (4.4-11.0)
[2024-06-20 10:16] LABS: Ammonia < 10.0 umol/L (11-32)
[2024-06-20 10:46] LABS: ALB/GLOB Ratio 0.8 RATIO (0.9-2.4); AST(SGOT) 10 U/L (15-37); Alanine Aminotransfer ALT/SGPT 20 U/L (13-56); Albumin, Serum 3.3 g/dL (3.2-5.0); Alkaline Phosphatase 154 U/L (45-117); Anion Gap 8 (5-15); BUN 11 mg/dL (7-18); Calcium,Total 8.9 mg/dL (8.5-10.1); Chloride 105 mmol/L (98-107); Creatinine, Serum 0.65 mg/dL (0.55-1.02); EST Glomerular Filtration Rate 121 mL/min (>60); Est Glom Filt Rate - Afr Amer 146 mL/min (>60); Glucose 90 mg/dL (74-106); Magnesium 2.1 mg/dL (1.6-2.6); Protein, Total 7.3 g/dL (6.4-8.2); Sodium Level 137 mmol/L (136-145)
[2024-06-23 15:07] LABS: KEPPRA (LEVETIRACETAM) 6.7 ug/mL (10.0-40.0)
== END | disposition home or self-care (01) ==
PROVIDERS: PCP Psychiatry & Neurology Neurology; Referring Provider Psychiatry & Neurology Neurology; Visit Provider Psychiatry & Neurology Neurology
DX: G40.909 Epilepsy, unspecified, not intractable, without status epilepticus (principal)
CPT/HCPCS: 36415; 80053; 80177; 82140; 83735; 84443; 85027

== ENCOUNTER → 2024-07-17 | Outpatient (CLI) | payer OTHER, SELFPAY ==
[2024-07-19 19:06] LABS: KEPPRA (LEVETIRACETAM) 8.1 ug/mL (10.0-40.0)
== END | disposition home or self-care (01) ==
LOC: MTLAB 07:37
PROVIDERS: PCP Psychiatry & Neurology Neurology; Referring Provider Psychiatry & Neurology Neurology; Visit Provider Psychiatry & Neurology Neurology
DX: G40.909 Epilepsy, unspecified, not intractable, without status epilepticus (principal)
CPT/HCPCS: 36415; 80177

== ENCOUNTER → 2024-08-23 | Outpatient (CLI) | payer OTHER, SELFPAY ==
[2024-08-23 11:50] LABS: Ammonia 19.9 umol/L (11-51)
[2024-08-27 07:07] LABS: KEPPRA (LEVETIRACETAM) 10.1 ug/mL (10.0-40.0)
== END | disposition home or self-care (01) ==
LOC: MTLAB 07:26
PROVIDERS: Referring Provider Psychiatry & Neurology Neurology; Visit Provider Psychiatry & Neurology Neurology
DX: G40.909 Epilepsy, unspecified, not intractable, without status epilepticus (principal)
CPT/HCPCS: 36415; 80177; 82140